=== PATIENT | female | born 1930 | race Asian ===

== ENCOUNTER 2018-02-27 04:33 | Emergency (ER) | payer OTHER, BC ==
[2018-02-27 05:06] LABS: BASOPHIL % 0.4 % (0-2); PLATELET COUNT 147 x10^3mcL (130-400); RED CELL DISTRIBUTION WIDTH 13.6 % (11.5-14.5)
[2018-02-27 05:18] LABS: CALCIUM 9.5 mg/dL (8.5-10.1); CARBON DIOXIDE 31.4 mmol/L (21-32); CHLORIDE SERUM 98 mmol/L (98-107); CREATININE SERUM 0.8 mg/dL (0.6-1.0); GLUCOSE SERUM 101 mg/dL (74-106); POTASSIUM SERUM 3.8 mmol/L (3.5-5.1); SODIUM SERUM 133 mmol/L (136-145)
[2018-02-27 05:23] LABS: ALKALINE PHOSPHATASE 54 U/L (46-116); ALT/SGPT 36 U/L (14-59); AST/SGOT 30 U/L (15-37); BILIRUBIN TOTAL 0.69 mg/dL (0.20-1.00); TOTAL PROTEIN, SERUM 8.1 g/dL (6.4-8.2)
[2018-02-27 06:14] LABS: UA SPECIFIC GRAVITY 1.015 (1.005-1.035); microscopic required? YES; urine erythrocyte NEGATIVE (NEGATIVE)
[2018-02-27 07:43] VITALS: BP 143/90
== END 2018-02-27 07:48 | disposition home or self-care (01) ==
LOC: EDBD 04:33 → ED 04:33
PROVIDERS: Emergency Medicine
DX: N39.0 Urinary tract infection, site not specified (principal); I10 Essential (primary) hypertension
CPT/HCPCS: 36415; 83880; Q0092